=== PATIENT | female | born 1955 | race Caucasian/White ===

== ENCOUNTER 2019-11-09 13:07 | Emergency (ER) | payer MEDICAID ==
[~2019-11-09] VITALS: Ht 162.6 cm; Wt 68.0 kg
[2019-11-09] MEDS ORDERED: ASPI81TA31 PO (13:36)
[2019-11-09] MEDS ORDERED: ATOR40TA PO (13:36)
[2019-11-09] MEDS ORDERED: ALBU0.63 IH (13:36)
[2019-11-09] MEDS ORDERED: ESCI20TA PO (13:36)
[2019-11-09] MEDS ORDERED: LORA-259 PO (13:36)
[2019-11-09] MEDS ORDERED: QUET100T PO (13:36)
[2019-11-09] MEDS ORDERED: HYDROCODONE/APAP 5-325MG TABLET PO ONE (14:00)
[2019-11-09] MEDS ORDERED: HYDROCODONE/APAP 5-325MG TABLET ONE (14:10)
--- NOTE | 2019-11-09 14:37 | NUR ---
PT IN ROOM #2B. DR VALERIO EVALUATED THE PT.
--- NOTE | 2019-11-09 15:18 | NUR ---
PT WAS D/C'd TO HOME . D/C INSTRUCTIONS GIVEN TO THE PT.
[2019-11-09 15:19] VITALS: BP 138/72
== END 2019-11-09 15:20 | disposition home or self-care (01) ==
LOC: ER 13:07
DX: S69.92XA Unspecified injury of left wrist, hand and finger(s), initial encounter (principal); F41.9 Anxiety disorder, unspecified; F32.9 Major depressive disorder, single episode, unspecified; E78.5 Hyperlipidemia, unspecified; Z88.0 Allergy status to penicillin; Z88.8 Allergy status to other drugs, medicaments and biological substances; Z79.82 Long term (current) use of aspirin; Z79.899 Other long term (current) drug therapy; W01.0XXA Fall on same level from slipping, tripping and stumbling without subsequent striking against object, initial encounter; Y93.89 Activity, other specified; Y92.89 Other specified places as the place of occurrence of the external cause; Y99.8 Other external cause status
CPT/HCPCS: 73110; A4663

== ENCOUNTER 2019-12-03 19:19 | Emergency (ER) | payer MEDICAID ==
[~2019-12-03] VITALS: Ht 165.1 cm; Wt 62.6 kg
--- NOTE | 2019-12-03 20:20 | NUR ---
Dr. Ricardo at bedside for MSE.
[2019-12-03] MEDS ORDERED: HYDROCODONE/APAP 5-325MG TABLET PO ONE (20:30)
--- NOTE | 2019-12-03 20:30 | NUR ---
Xray at bedside.
[2019-12-03] MEDS ORDERED: HYDROCODONE/APAP 5-325MG TABLET ONE (20:35)
--- NOTE | 2019-12-03 21:22 | NUR ---
Patient discharged to home in stable conditon. Written and verbal after care instructions given. Patient verbalizes understanding of instructions. Pt ambulated out of ER with steady gait, no acute signs of distress, VSS, all belongings taken, to be driven home by daughter.
[2019-12-03 21:23] VITALS: BP 147/88
== END 2019-12-03 21:23 | disposition home or self-care (01) ==
LOC: ER 19:21
DX: S60.012A Contusion of left thumb without damage to nail, initial encounter (principal); F41.9 Anxiety disorder, unspecified; F32.9 Major depressive disorder, single episode, unspecified; E78.5 Hyperlipidemia, unspecified; Z88.0 Allergy status to penicillin; Z88.8 Allergy status to other drugs, medicaments and biological substances; Z79.82 Long term (current) use of aspirin; Z79.899 Other long term (current) drug therapy; W18.39XA Other fall on same level, initial encounter; Y93.89 Activity, other specified; Y92.89 Other specified places as the place of occurrence of the external cause; Y99.8 Other external cause status
CPT/HCPCS: 73110; 73130; A4663